=== PATIENT | female | born 1995 | race African-American/Black ===

== ENCOUNTER 2019-07-22 19:45 | Observation (INO) | payer OTHER, SELFPAY ==
--- NOTE | 2019-07-22 22:47 | OBADM ---
This patient, Giovana Kim, admitted to the OB room Labor/Delivery/Recovery 105 for observation. Patient/family oriented to hospital policies and general routines including ID bracelet, bed and alarms, visiting hours, pain management, procedures, bathroom and other care routines, personal items, smoking policy, room service/diet, and visiting hours. Patient/Family are encouraged to report perceived risks to care and to ask questions if they do not understand what they are told or what they should do.
--- NOTE | 2019-08-07 18:54 | PM.OBTRLD ---
OB - Triage/Final Diagnosis Final Diagnosis (1) False labor: Code(s): O47.9 - False labor, unspecified Status: Acute
== END 2019-07-22 22:25 | disposition home or self-care (01) ==
PROVIDERS: Admitting Provider Obstetrics & Gynecology; Visit Provider Obstetrics & Gynecology
DX: O47.03 False labor before 37 completed weeks of gestation, third trimester (principal); Z3A.39 39 weeks gestation of pregnancy
CPT/HCPCS: G0378; G0379

== ENCOUNTER 2019-07-23 02:57 | Inpatient (IN) | payer OTHER, SELFPAY ==
[2019-07-23] VITALS (233 sets, daily range): BP systolic 78–238; BP diastolic 36–215; PULSE 44–167; RESP 16–28; TEMP 36.6–38.9; O2SAT 82–100; BMI 43.6
[2019-07-23 04:23] LABS: Basophils Percent Auto 0.2 % (0.2-1.2); Eosinophils Absolute Auto 0.1 K/mm3 (0-0.3); Eosinophils Percent Auto 0.6 % (0-4.4); Hematocrit 31.5 % (37.0-47.0); Hemoglobin 10.3 g/dL (12.0-15.0); Immature Granulocyte Absolute 0.05 K/mm3 (0.00-0.031); Immature Granulocyte Percent A 0.5 % (0-0.5); Lymphocytes Absolute Auto 1.62 K/mm3 (0.9-3.2); Lymphocytes Percent Auto 16.9 % (18.3-44.2); Mean Corpuscular HGB Conc 32.7 g/dl (32-36); Mean Corpuscular Hemoglobin 28.5 pg (26-34); Mean Corpuscular Volume 87.3 fl (80-100); Mean Platelet Volume 9.6 fl (7.4-10.4); Monocytes Absolute Auto 0.6 K/mm3 (0.1-0.6); Monocytes Percent Auto 5.7 % (2.6-8.5); Neutrophils Absolute Auto 7.3 K/mm3 (1.3-6.7); Neutrophils Percent Auto 76.1 % (45.5-73.1); Nucleated Red Blood Cells Perc 0.2 % (0.0-0.2); Platelet Count Result 230 k/mm3 (150-375); Red Blood Count 3.61 M/mm3 (4.2-5.4); Red Cell Distribution Width 13.9 % (11.5-14.5); White Blood Count 9.6 K/mm3 (4.5-10.0)
[2019-07-23] MEDS: LACTATED RINGERS 1,000 ML 125 ML IV CONT ×4 (04:25→10:34)
[2019-07-23] MEDS: AMPICILLIN 2 GM/NS 100 ML 2 GM/100 ML BAG IVPB ×2 (04:27→20:31)
--- NOTE | 2019-07-23 04:29 | LDADM ---
This patient, Giovana Kim, was admitted to Labor/Delivery/Recovery 105 on 07/23/19 at 02:57. Plans for labor, pain management and were discussed with patient. Patient/family oriented to hospital policies and general routines including ID bracelet, bed and alarms, visiting hours, pain management, procedures, bathroom and other care routines, personal items, smoking policy, room service/diet and guest tray routines, security routines, and visiting hours. Patient/Family are encouraged to report perceived risks to care and to ask questions if they do not understand what they are told or what they should do. See OBIX for further documentation.
[2019-07-23 04:58] LABS: Amphetamine Screen Urine Negative (Negative); Barbiturate Screen Urine Negative (Negative); Benzodiazepines Screen Urine Negative (Negative); Cannabinoid Screen Urine Positive (Negative); Cocaine Screen Urine Negative (Negative); Methadone Screen Urine Negative (Negative); Opiate Screen Urine Negative (Negative); Phencyclidine Screen Urine Negative (Negative)
--- NOTE | 2019-07-23 05:24 | P.PNAN_ITS ---
Anes - Eval Pre Procedure Procedure: labor epidural Date/Time: 07/23/19 05:24 Surgeon: opal Pre Op Diagnosis: leaking Patient Data Age: 23 Gender: F Height: 1.68 m Weight: 122.7 kg Last Vital Signs Temp 36.7 C 07/23/19 03:08 Pulse 100 07/23/19 05:23 Resp 20 07/23/19 03:08 BP 113/68 07/23/19 05:23 Pulse Ox 100 07/23/19 05:20 Allergies Allergy/AdvReac Type Severity Reaction Status Date / Time No Known Allergies Allergy Verified 05/26/19 10:44 Home Medications Medication Instructions Recorded Confirmed Type No Home Medications 07/23/19 07/23/19 History Laboratory Tests 07/23/19 07/23/19 07/23/19 04:13 04:13 04:13 WBC 9.6 K/mm3 K/mm3 (4.5-10.0) RBC 3.61 M/mm3 L M/mm3 (4.2-5.4) Hgb 10.3 g/dL L g/dL (12.0-15.0) Hct 31.5 % L % (37.0-47.0) MCV 87.3 fl fl (80-100) MCH 28.5 pg pg (26-34) MCHC 32.7 g/dl g/dl (32-36) RDW 13.9 % % (11.5-14.5) Plt Count 230 k/mm3 k/mm3 (150-375) MPV 9.6 fl fl (7.4-10.4) Immature Gran % (Auto) 0.5 % % (0-0.5) Neut % (Auto) 76.1 % H % (45.5-73.1) Lymph % (Auto) 16.9 % L % (18.3-44.2) [place] % (Auto) 5.7 % % (2.6-8.5) Eos % (Auto) 0.6 % % (0-4.4) Baso % (Auto) 0.2 % % (0.2-1.2) Lymph # (Auto) 1.62 K/mm3 K/mm3 (0.9-3.2) [place] # (Auto) 0.6 K/mm3 K/mm3 (0.1-0.6) Eos # (Auto) 0.1 K/mm3 K/mm3 (0-0.3) Baso # (Auto) 0.0 K/mm3 K/mm3 (0.0-0.1) Abs Immat Gran (auto) 0.05 K/mm3 H K/mm3 (0.00-0.031) Absolute Neuts (auto) 7.3 K/mm3 H K/mm3 (1.3-6.7) Absolute Nucleated RBC 0.0 K/mm3 K/mm3 (0.0-0.012) Nucleated RBC % 0.2 % % (0.0-0.2) Urine Opiates Screen Negative (Negative) Urine Methadone Screen Negative (Negative) Ur Barbiturates Screen Negative (Negative) Ur Phencyclidine Scrn Negative (Negative) Ur Amphetamine Screen Negative (Negative) U Benzodiazepines Scrn Negative (Negative) Urine Cocaine Screen Negative (Negative) U Cannabinoids Screen Positive A (Negative) RPR Pending Patient hx anesthesia problems: none Family hx anesthesia problems: none PMFSH Social History Social History Smoking status: Never smoker Gender identity (if verbalized by the patient): Female Spiritual care concerns: No Exam Day of Procedure 07/23/19 05:24 Patient weight: morbidly obese Heart: regular rate and rhythm Lungs: clear to auscultation Airway: Mallampati scale class II Neurological: alert and oriented
[2019-07-23] MEDS: PHENYLEPHRINE 1,000 MCG/10 ML SYRINGE 100 MCG IV PUSH ×2 (06:49→06:58)
[2019-07-23] MEDS: AMPICILLIN 1 GM/NS 50 ML 1 GM/50 ML BAG IVPB ×2 (08:42→12:25)
--- NOTE | 2019-07-23 10:22 | P.HP_ITS ---
Obstetrics - Admit Note Admission Note: 23y/o G1 @ 39w6d came in overnight with complaints of contractions and leaking fluid. Rom plus was negative however pt was getting more uncomfortable with contractions. Decision was made to admit for labor. 1000 VSS with last temp 99.1 and repeat done just after exam was 102.1 Contractions regular and fhr category 2. Baseline has slowly increased and occasional decelerations. 4/90/-2 and pt felt very warm during exam AROM moderate amount of meconium stained odorless fluid Plan: Continue ampicillin, Tylenol, Gentamycin. Monitor closely. Notified Dr Molina of all of the above and he agrees with plan of care. Anticipate [facility] record reviewed. No pertinent additions to the history and/or any subsequent changes in the physical findings that are not consistent with the expected course of the were found. Additions to the history and/or subsequent changes in the physical findings follow. None.
[2019-07-23] MEDS: SODIUM CHLORIDE 0.9% IV 300 ML 600 ML I-UTERINE (10:37)
[2019-07-23] MEDS: GENTAMICIN 80MG/SOD CHL 50 ML 80 MG/50 ML BAG 100 MG IVPB ×2 (11:30→19:40)
[2019-07-23 11:42] LABS: Estimated CRCL calculation 168 ml/min; Estimated Glomerular Filt Rate > 60
--- NOTE | 2019-07-23 14:21 | PM.IMHP ---
H&P: HPI History of Present Illness Chief complaint: leaking Narrative: Giovana Kim is a 23 year old female 1 at 39 weeks gestation who presented earlier in the day with labor. Shortly after she began to show signs of infection. She was febrile. Antibiotics were started, artificial rupture of membranes were performed and IUPC was placed. Patient proceeded through labor until she reached 6 cm. She has been 6 cm for over 2 hours. She has a fever, and the has nonreassuring heart tones. There is some late decelerations. There is tachycardia. At times there has diminished variability. We agreed to proceed with delivery after I discussed these findings with the patient. Review of Systems Constitutional: Constitutional: Reports no additional constitutional complaints, Denies fatigue, Denies headache(s), Denies lethargy and Denies weakness Eyes: Eyes: Reports no additional eye complaints, Denies blurry vision and Denies photophobia ENT: Reports as per HPI, Denies headache(s) and Denies neck pain Cardiovascular: Cardiovascular: Denies chest pain, Denies diaphoresis, Denies leg edema, Denies palpitations and Denies dyspnea Respiratory: Respiratory: Denies hemoptysis, Denies dyspnea and Denies wheezing Gastrointestinal: Gastrointestinal: Denies abdominal pain, Denies melena, Denies bloating, Denies hematochezia, Denies nausea and Denies vomiting Genitourinary: Genitourinary: Reports no additional female genitourinary complaints Musculoskeletal: Musculoskeletal: Denies joint swelling, Denies neck pain, Denies numbness and Denies stiffness Neurologic: Denies Abnormal speech present, Denies confusion, Denies headache(s), Denies numbness and Denies weakness Psychiatric: Psychiatric: Denies anxiety, Denies confusion, Denies depression, Denies homicidal ideation and Denies suicidal ideation Endocrine: Endocrine: Denies fatigue and Denies palpitations Allergic/Immunologic: Allergic/Immunologic: Denies wheezing [facility] Family History Family History (Updated 07/23/19 @ 05:37 by Chandrika Bello RN) Father Hypertension Mother Seizure Social History Social History Smoking status: Never smoker Gender identity (if verbalized by the patient): Female Spiritual care concerns: No Meds Home Medications and Allergies Home Medications Medication Instructions Recorded Confirmed Type No Home Medications 07/23/19 07/23/19 History Allergies Allergy/AdvReac Type Severity Reaction Status Date / Time No Known Allergies Allergy Verified 05/26/19 10:44 Vital Signs Vital Signs - 24 hr 07/23/19 03:08 07/23/19 03:15 07/23/19 03:40 Temperature 98.1 F Pulse Rate 107 H 108 H Respiratory Rate 20 Blood Pressure 124/76 128/81 Pulse Oximetry 98 07/23/19 03:45 07/23/19 03:50 07/23/19 03:52 Temperature Pulse Rate Respiratory Rate Blood Pressure Pulse Oximetry 98 100 100 07/23/19 03:55 07/23/19 04:17 07/23/19 04:22 Temperature Pulse Rate 115 H Respiratory Rate Blood Pressure 136/88 Pulse Oximetry 99 99 98 07/23/19 04:27 07/23/19 04:31 07/23/19 04:32 Temperature Pulse Rate 106 H Respiratory Rate Blood Pressure 142/84 H Pulse Oximetry 97 98 07/23/19 04:37 07/23/19 04:42 07/23/19 04:46 Temperature Pulse Rate 109 H Respiratory Rate Blood Pressure 134/88 Pulse Oximetry 98 100 07/23/19 04:47 07/23/19 04:52 07/23/19 04:55 Temperature Pulse Rate 112 H Respiratory Rate Blood Pressure 121/81 Pulse Oximetry 99 99 07/23/19 04:56 07/23/19 04:57 07/23/19 04:59 Temperature Pulse Rate 112 H 112 H Respiratory Rate Blood Pressure 130/75 124/75 Pulse Oximetry 98 07/23/19 05:00 07/23/19 05:02 07/23/19 05:04 Temperature 98 F Pulse Rate 115 H 111 H Respiratory Rate 20 Blood Pressure 124/75 124/75 Pulse Oximetry 100 07/23/19 05:05 07/23/19 05:07 07/23/19 05:08 Tem
--- NOTE | 2019-07-23 15:31 | PM.PROC ---
Procedure Note - Detailed Date of procedure: 07/25/19 Pre-op diagnosis: leaking Chorioamnionitis, failure to progress, nonreassuring status Post-op diagnosis: same (Malposition of the head-occiput posterior) Procedure performed: Low-transverse delivery Description of procedure: The patient was taken the operating room. She was prepped and draped in the dorsal supine position with leftward tilt after induction of spinal anesthetic. When anesthesia was found to be adequate a low-transverse skin incision was made and carried down to the level the fascia with the knife. The fascial incision was made at the midline with a scalpel. The fascial incision was extended laterally with Patton scissors. The fascia was tented upward superior and inferior with Daniel clamps. The rectus muscles were dissected off bluntly. The rectus muscles at the midline. The preperitoneal fat was dissected bluntly at the superior aspect of the separate the rectus muscles. The peritoneal cavity was entered bluntly in the same area. The peritoneal incision was extended superior and inferior with good visualization of bladder. Bladder blade was inserted. A low-transverse incision was made on the uterus with the scalpel. It was carried down the level of the amniotic cavity with a knife. The amniotic cavity bluntly. The uterine incision was made laterally with blunt traction. The infant was delivered. The cord was clamped and cut. The infant was handed off to waiting pediatric staff. Cord bloods were obtained. The placenta was removed manually. The uterus was exteriorized. Uterus cleared of all clots and debris. Uterus closed in 0 Vicryl in a running locked fashion. An imbricating layer of 0 Vicryl was also placed on the to bolster the closure. The uterus was returned to the abdomen. The gutters were cleared of all clots and debris. The fascia was closed 0 Vicryl in a running fashion. Subcutaneous tissue was irrigated and bleeding areas were cauterized. The skin was closed with tania. The incision was covered a Mepilex dressing. The patient tolerated the procedure well. She was taken recovery room stable condition. Sponge, lap, needle counts were correct x2. Anesthesia: spinal and epidural Surgeon: Matthew Molina MD Estimated blood loss (mL): 1,350 Drains: No Packing: No Pathology: none sent Complications: No immediate complications Condition: stable Disposition: floor Findings: Normal maternal anatomy. Average size infant with normal Apgars. No gross evidence of abruption. 's head was in the occiput posterior position-direct OP
[2019-07-23] MEDS: MORPHINE SULFATE 2 MG/ML INJ IV PUSH (16:19)
[2019-07-23] MEDS: CLINDAMYCIN 900 MG/NS 50 ML 900 MG/50 ML PIGGYBACK 50 MG IVPB (16:41)
--- NOTE | 2019-07-23 19:00 | PC.NURSE ---
1735 Pt transferred to room 284 per stretcher from labor and delivery after primary delivery of viable female infant at [address] Molina. Mother is a and desires to breast feed . FOB present, with family members. during transfer to bed, stretcher moved and pt went to floor, with air mattress inflated. Pt able to talk and move extremities; no reports of pain. Abd soft, and no unusual vaginal flow. animal care supervisor nofified, and pt was lifted to her bed by team of people on all sides. Pt tolerated transfer well. VSS and assessment WNL. Dr. Molina notified.
--- NOTE | 2019-07-23 20:40 | PC.NURSE ---
Patient was set up with a breast pump at the bedside and she pumped for 15 mins, she was able to get a few drops of colostrum which were given to the . Per mom she would like to bottle feed baby through the night and start pumping and putting baby to breast in the morning.
[2019-07-23] MEDS: DEXTROSE 5%/0.45% SOD CHL 1,000 ML 125 ML IV CONT (21:05)
[2019-07-23] MEDS: POLYSACCHARIDE IRON COMPLEX 150 MG CAPSULE PO (23:51)
[2019-07-23] MEDS: DOCUSATE SODIUM 100 MG CAPSULE PO (23:51)
[2019-07-23] MEDS: IBUPROFEN 600 MG TABLET PO (23:51)
[2019-07-24] MEDS: CLINDAMYCIN 900 MG/NS 50 ML 900 MG/50 ML PIGGYBACK 50 MG IVPB ×3 (00:11→15:58)
--- NOTE | 2019-07-24 01:57 | PC.NURSE ---
Daylight Savings Time For Daylight Savings Time Beginning in the Spring - Clocks are moved ahead. For [facility], the time of change occurs at 0200 hrs. Time is taken from the beverage server. This entry on the patient's chart recognizes the change in time reflected during documentation. Example: 2 entries for vital signs may be charted for 0200 hrs.
[2019-07-24] MEDS: AMPICILLIN 2 GM/NS 100 ML 2 GM/100 ML BAG IVPB ×4 (01:58→20:16)
[2019-07-24 04:30] VITALS: BP 109/68; PULSE 105; RESP 18; TEMP 37.2; O2SAT 100
[2019-07-24] MEDS: GENTAMICIN 80MG/SOD CHL 50 ML 80 MG/50 ML BAG 100 MG IVPB ×2 (04:58→13:14)
[2019-07-24 05:50] LABS: Hematocrit 25.6 % (37.0-47.0); Hemoglobin 8.2 g/dL (12.0-15.0); Mean Corpuscular Hemoglobin 28.4 pg (26-34); Mean Corpuscular Volume 88.6 fl (80-100); Mean Platelet Volume 10.2 fl (7.4-10.4); Platelet Count Result 177 k/mm3 (150-375); Red Blood Count 2.89 M/mm3 (4.2-5.4); Red Cell Distribution Width 14.3 % (11.5-14.5); White Blood Count 11.3 K/mm3 (4.5-10.0)
[2019-07-24 07:40] LABS: Band Neutrophils Percent 17 % (0-6); Lymphocytes Absolute Manual 1.46 K/mm3 (1.1-4.5); Neutrophils Absolute Manual 9.83 K/mm3 (1.7-7.2); Neutrophils Percent Manual 70 % (46-73); Platelet Estimate Adequate (Adequate); Total Cells Counted 100
[2019-07-24 07:41] LABS: Hypochromasia 1+ (NORMAL)
[2019-07-24 08:05] VITALS: BP 103/62; PULSE 97; RESP 14; TEMP 36.2; O2SAT 98
[2019-07-24] MEDS: DOCUSATE SODIUM 100 MG CAPSULE PO ×2 (08:13→20:15)
[2019-07-24] MEDS: MULTIVIT/MIN/PREN/FOL AC/IRON TABLET 1 TAB PO (08:13)
[2019-07-24] MEDS: IBUPROFEN 600 MG TABLET PO ×3 (08:14→22:16)
[2019-07-24] MEDS: POLYSACCHARIDE IRON COMPLEX 150 MG CAPSULE PO ×2 (08:22→20:15)
[2019-07-24] MEDS: SIMETHICONE 80 MG TAB.CHEW PO (08:32)
[2019-07-24] MEDS: DEXTROSE 5%/0.45% SOD CHL 1,000 ML 125 ML IV CONT (08:35)
--- NOTE | 2019-07-24 10:28 | P.PNOB_ITS ---
OB - PN: Subj Subjective Date/time seen: 07/24/19 10:28 OB - PN: Obj Data Labs CBC & Chem 7: 07/24/19 05:09 07/23/19 11:23 Labs: Laboratory Results - last 24 hr 07/23/19 07/24/19 11:23 05:09 WBC 11.3 H RBC 2.89 L Hgb 8.2 L Hct 25.6 L MCV 88.6 MCH 28.4 MCHC 32.0 RDW 14.3 Plt Count 177 MPV 10.2 Immature Gran % (Auto) Not Reportable Neut % (Auto) Not Reportable Lymph % (Auto) Not Reportable [place] % (Auto) Not Reportable Eos % (Auto) Not Reportable Baso % (Auto) Not Reportable Lymph # (Auto) Not Reportable [place] # (Auto) Not Reportable Eos # (Auto) Not Reportable Baso # (Auto) Not Reportable Abs Immat Gran (auto) Not Reportable Absolute Neuts (auto) Not Reportable Absolute Nucleated RBC Not Reportable Total Counted 100 Neutrophils % (Manual) 70 Band Neutrophils % 17 H Lymphocytes % (Manual) 13.0 L Nucleated RBC % Not Reportable Abs Neuts (Manual) 9.83 H Abs Lymphs (Manual) 1.46 Platelet Estimate Adequate Hypochromasia 1+ Creatinine 0.60 L Estim Creat Clear Calc 168 Estimated GFR > 60 OB - PN A/P Time Spent With Patient Time: Total time spent is greater than 50% in coordination of care (as documented) at patient's floor/unit and/or counseling patient: Review of Systems Review of Systems: All systems reviewed & are unremarkable except as noted in HPI and below Exam Const: General: comfortable Resp: Effort & Inspection: normal respiratory effort Auscultation: clear to auscultation bilaterally Cardio: Rate: regular rate GI: Auscultation: normal bowel sounds : General: Yes bladder normal to palpation Extrem: General: normal to inspection, no calf tenderness and edema (trace) bilateral Psych: Appearance: grossly normal Affect: normal affect Attitude: community service officer coordinator perative Judgement: Good judgement present (Psych)
--- NOTE | 2019-07-24 11:49 | WPDANLDNPN2 ---
Anes-Prog Note L&D-Neuraxial Date/Time: 07/24/19 11:49 Neuraxial medications: intrathecal PF morphine Opiod-related complaints: none Patient feedback: Patient satisfied with post-operative pain management.
--- NOTE | 2019-07-24 11:49 | WPDANLDPN2 ---
Anes-Prog Note L&D Date/Time: 07/24/19 11:49 Comfortable throughout: labor Neuraxial method: epidural Epidural/Spinal procedure site: clean & non-tender Neuro status: Neuro function grossly intact. Cardiovascular status: normal Respiratory status: normal Airway patency: baseline Mental status: baseline Post-Op hydration status: normal Vital Signs: Last Vital Signs Temp 36.2 C L 07/24/19 08:05 Pulse 97 07/24/19 08:05 Resp 14 07/24/19 08:05 BP 103/62 07/24/19 08:05 Pulse Ox 98 07/24/19 08:05 I/O: Intake & Output 07/23/19 07/24/19 07/24/19 22:59 07:59 15:59 Intake Total 1000 Output Total Balance 1000 Post-procedural complaints: none Patient feedback: Patient satisfied with anesthetic care.
[2019-07-24 13:46] LABS: Gentamicin Trough 0.8 ug/mL (<1.0)
[2019-07-24 15:52] LABS: Gentamicin Peak 2.8 ug/mL (5.0-12.0)
[2019-07-24 18:57] VITALS: BP 97/55; PULSE 97; RESP 18; TEMP 36.1
[2019-07-24 21:00] VITALS: BP 110/70; PULSE 112; RESP 16; TEMP 36.7; O2SAT 100
[2019-07-24] MEDS: GENTAMICIN SULFATE INJ 160 MG in DEXTROSE 5% 100 ML 100 MG IVPB (21:04)
[2019-07-25] MEDS: CLINDAMYCIN 900 MG/NS 50 ML 900 MG/50 ML PIGGYBACK 50 MG IVPB ×2 (00:15→09:02)
[2019-07-25] MEDS: AMPICILLIN 2 GM/NS 100 ML 2 GM/100 ML BAG IVPB ×2 (02:04→08:15)
[2019-07-25] MEDS: GENTAMICIN SULFATE INJ 160 MG in DEXTROSE 5% 100 ML 100 MG IVPB (05:03)
[2019-07-25] MEDS: IBUPROFEN 600 MG TABLET PO ×3 (05:17→23:06)
[2019-07-25 07:45] VITALS: BP 118/75; PULSE 98; RESP 16; TEMP 36.8; O2SAT 99
[2019-07-25] MEDS: DOCUSATE SODIUM 100 MG CAPSULE PO ×2 (09:03→17:03)
[2019-07-25] MEDS: POLYSACCHARIDE IRON COMPLEX 150 MG CAPSULE PO ×2 (09:03→17:03)
[2019-07-25] MEDS: MULTIVIT/MIN/PREN/FOL AC/IRON TABLET 1 TAB PO (09:03)
[2019-07-25 09:23] LABS: Rapid Plasma Reagin Non-Reactive (NonReactive)
--- NOTE | 2019-07-25 11:35 | PC.NURSE ---
Consulted with patient, mother reports she wishes to put to breast. Mother states she has attempted several times without a successful latch. Infant is unable to latch and maintain latch. Mother has been set up with pumping and is not pumping regularly. Discussed stimulation of milk supply and suggested mother imitate regular pumping. Reviewed feeding cues, frequencies, duration of feedings, feeding elimination flow sheet, and signs of adequate intake. Demonstrated stimulation techniques to wake infant for feeding. Assisted with infant to breast. Reviewed positioning/alignment in football, holding breast in C hold and guided asymmetrical latch on. Mother has large breasts, assisted with support to help with latch. Max. assistance, was able to latch correctly. nursed eagerly with steady draws, followed with pausing and infant would release latch. Reviewed signs of a correct latch, effective nursing and suck swallow ratio. was unable to maintain latch. Infant would eagerly attempt to latch again. Suggested mother make a 5-10 minute attempt each feeding before bottle feeding and then pump 15 minutes.
--- NOTE | 2019-07-25 11:50 | PC.NURSE ---
Reviewed instructions given on breast pump care and usage, pumping schedule, nipple care, and collection and storage of breast milk. Encouraged [id number], breast massage and manual expression to stimulate supply. Pumping log provided and reviewed. Assessed patient for correct flange size, placement and draw. Patient verbalizes and demonstrates understanding of instructions.
--- NOTE | 2019-07-25 12:12 | PM.OBPNVD ---
OB - PN: Subj Subjective Date/time seen: 07/25/19 12:12 Patient comments: no complaints, pain well controlled, incisional pain, tolerating diet and flatus present OB - PN: Obj Data Labs CBC & Chem 7: 07/24/19 05:09 07/23/19 11:23 Labs: Laboratory Results - last 24 hr 07/23/19 07/24/19 07/24/19 04:13 12:34 15:01 Gentamicin Peak 2.8 L Gentamicin Trough 0.8 RPR Non-reactive OB - PN A/P Plan day: 2 Plan: routine care Comments: POD#2 LTCS - no problems, Time Spent With Patient Time: Total time spent is greater than 50% in coordination of care (as documented) at patient's floor/unit and/or counseling patient: Exam Const: General: comfortable, no acute distress and alert Resp: Effort & Inspection: normal respiratory effort Auscultation: no crackles, no rales and no rhonchi Cardio: Rate: regular rate Heart sounds: no click, no murmurs and no rubs GI: Inspection: non-distended GI Palp: No Tenderness to palpation present (GI) Auscultation: normal bowel sounds Other: Incision - CDI Extrem: General: normal to inspection, no pedal edema and no calf tenderness
[2019-07-25] MEDS: TETANUS,DIPHTHERIA,AC PERTUSSIS ADULT 0.5 ML (ADACEL) IM (17:04)
--- NOTE | 2019-07-25 18:23 | PC.NURSE ---
This Rn went into pts room to introduce myself. Pt was sleeping but woke when i came in. Pt denied needing anything at this time and stated that she was in no pain. Told pt to call out if she needed anything. Pt stated she understood.
[2019-07-25 19:27] VITALS: BP 123/70; PULSE 88; RESP 15; TEMP 36.4; O2SAT 100
[2019-07-26] MEDS: IBUPROFEN 600 MG TABLET PO (05:23)
--- NOTE | 2019-07-26 07:46 | PM.OBPNVD ---
OB - PN: Subj Subjective Date/time seen: 07/26/19 07:46 Patient comments: no complaints, pain well controlled, incisional pain, tolerating diet and flatus present OB - PN: Obj Data Labs CBC & Chem 7: 07/24/19 05:09 07/23/19 11:23 Labs: Laboratory Results - last 24 hr 07/23/19 04:13 RPR Non-reactive OB - PN A/P Plan day: 3 Plan: routine care, discharge home and other Comments: Incision check and staple removal in two days. Given precautions Time Spent With Patient Time: Total time spent is greater than 50% in coordination of care (as documented) at patient's floor/unit and/or counseling patient: Exam Const: General: comfortable, no acute distress and alert Resp: Effort & Inspection: normal respiratory effort Auscultation: no crackles, no rales and no rhonchi Cardio: Rate: regular rate Heart sounds: no click, no murmurs and no rubs GI: Inspection: non-distended GI Palp: No Tenderness to palpation present (GI) Auscultation: normal bowel sounds Other: Incision - CDI Extrem: General: normal to inspection, no pedal edema and no calf tenderness
--- NOTE | 2019-07-26 07:47 | PM.DS ---
DS: Diagnosis Admitting Diagnosis Admitting Diagnosis: term gestation, labor DS: Summary Hospital Course Reason for hospitalization: term gestation, labor Hospital Course: chorioamnionitis in labor, delivery, normal recovery Status at Discharge Functional status at discharge: independent ambulation Time Spent with Patient Time attestation: Total time spent providing and/or coordinating discharge services: Time spent: Less than 30 minutes DS: Data Data Completed and Pending Pending studies at discharge: Pending at discharge 07/25/19 08:18 Surgical [PTH] Routine Labs on day of discharge: Labs from last 24 hours 07/23/19 04:13 RPR Non-reactive Discharge Plan Discharge Discharging Clinician: Matthew Molina Patient Disposition: Home, Self-Care Activity: pelvic rest Diet: regular Patient Instructions: Antibiotic Form Stand Alone Forms: General Discharge Information Follow-up/Referrals: Matthew Molina MD [Physician] - Discharge Medications: New hydrocodone-acetaminophen 5-325 mg tablet 1 - 2 tablet PO Q4H PRN (Reason: pain) Qty: 25 RF: 0 No Action No Home Medications RF: 0 Date of admission: 07/23/19 02:57 Primary Care Provider: UNKNOWN,DOCTOR Admitting Provider: Matthew Molina Attending physician on admission: Matthew Molina
[2019-07-26 07:55] VITALS: BP 124/78; PULSE 85; RESP 18; TEMP 36.9; O2SAT 97
[2019-07-26] MEDS: POLYSACCHARIDE IRON COMPLEX 150 MG CAPSULE PO (08:58)
[2019-07-26] MEDS: DOCUSATE SODIUM 100 MG CAPSULE PO (08:58)
[2019-07-26] MEDS: MULTIVIT/MIN/PREN/FOL AC/IRON TABLET 1 TAB PO (08:58)
--- NOTE | 2019-07-26 12:20 | PC.NURSE ---
Patient instructed to view the discharge video Mother & Baby Care, The First Two Weeks . Patient was given the opportunity and encouraged to ask questions. Patient verbalized understanding of information shared and has been given the mother/baby guide for home reference.
== END 2019-07-26 14:27 | disposition home or self-care (01) | DRG 540 ==
LOC: ANHLDR 04:21 → ANHOB2 18:11
PROVIDERS: Advanced Practice Midwife; Admitting Provider Obstetrics & Gynecology; Visit Provider Obstetrics & Gynecology
PROC: (CPT 59514; principal; 2019-07-23 14:30)
DX: O36.8330 Maternal care for abnormalities of the fetal heart rate or rhythm, third trimester, not applicable or unspecified (principal); Z37.0 Single live birth; Z3A.39 39 weeks gestation of pregnancy; O41.1230 Chorioamnionitis, third trimester, not applicable or unspecified; O62.0 Primary inadequate contractions; O99.824 Streptococcus B carrier state complicating childbirth; O99.214 Obesity complicating childbirth; E66.01 Morbid (severe) obesity due to excess calories; O77.0 Labor and delivery complicated by meconium in amniotic fluid; O32.8XX0 Maternal care for other malpresentation of fetus, not applicable or unspecified; Z23 Encounter for immunization
CPT/HCPCS: 36415; 80170; 80307; 82565; 85025; 86592; 86850; 86900; 86901; 88307; 90471; 90686; 90715; A9270; G0008; J0131; J0290; J1200; J1580; J2175; J2270; J2274; J2370; J2405; J2590; J3010; J7030; J7120